=== PATIENT | female | born 1990 | race Caucasian/White ===

== ENCOUNTER 2016-11-26 21:58 | Emergency (ER) | payer MEDICAID ==
[~2016-11-26] VITALS: Ht 167.6 cm; Wt 59.1 kg
[2016-11-26 22:30] VITALS: BP 117/67
== END 2016-11-27 02:00 | disposition left against medical advice (07) ==
LOC: ER 21:58
DX: R10.9 Unspecified abdominal pain (principal); R11.0 Nausea; Z53.21 Procedure and treatment not carried out due to patient leaving prior to being seen by health care provider

== ENCOUNTER 2016-12-11 12:49 | Emergency (ER) | payer MEDICAID ==
[~2016-12-11] VITALS: Ht 165.1 cm; Wt 59.0 kg
[2016-12-11 14:14] VITALS: BP 137/87
[2016-12-11] MEDS ORDERED: ACETAMINOPHEN WITH CODEINE 300/30MG TABLET PO ONE (14:15)
== END 2016-12-11 15:05 | disposition home or self-care (01) ==
LOC: ER 14:50
DX: K42.9 Umbilical hernia without obstruction or gangrene (principal); F17.210 Nicotine dependence, cigarettes, uncomplicated; F12.10 Cannabis abuse, uncomplicated; Z87.828 Personal history of other (healed) physical injury and trauma
CPT/HCPCS: 99282